=== PATIENT | female | born 1990 | race Caucasian/White ===

== ENCOUNTER 2017-02-04 13:32 | Emergency (ER) | payer OTHER ==
[~2017-02-04] VITALS: Ht 160 cm; Wt 46.8 kg
[2017-02-04 13:34] VITALS: BP 104/75; PULSE 95; RESP 16; TEMP 97.9; O2SAT 99
[2017-02-04] MEDS ORDERED: BIRTH CONTROL PILLS PO (13:54)
[2017-02-04] MEDS ORDERED: ACETAMINOPHEN 1000 MG/100 ML VIAL IV ONE (14:30)
[2017-02-04] MEDS ORDERED: SODIUM CHLOR 0.9% 1000 ML INJ 1,000 ML IV SCH (14:30)
[2017-02-04] MEDS ORDERED: ONDANSETRON HCL 4 MG/2 ML VIAL IV PUSH ONE (14:30)
[2017-02-04 14:39] LABS: BLOOD, URINE NEG (NEG); GLUCOSE,URINE NEG (NEG); NITRITE,URINE NEG (NEG)
[2017-02-04 14:42] LABS: KETONE, URINE 80 OR GREATER mg/dL (NEG)
[2017-02-04 14:43] LABS: METHOD OF COLLECTION VOIDED; URINE COLOR YELLOW (YELLW/STRAW)
[2017-02-04 14:47] LABS: WBC, URINE 0-2 /hpf (0-5)
[2017-02-04 14:55] VITALS: BP 106/74; PULSE 96; RESP 18; O2SAT 98
--- NOTE | 2017-02-04 14:59 | PD ---
HPI Chief Complaint: Abdominal Pain Time Seen by Provider: 14:17 Travel History International Travel<30 days: No Contact w/Intl Traveler<30days: No Traveled to known affect area: No History of Present Illness HPI 27 year-old woman presents to the emergency department complaining of severe mid upper abdominal pain associated with nausea but no vomiting, and going for the past day. She had a 9 months ago. She's not had any other abdominal surgeries. She still breast-feeding. She's never had gallbladder trouble. Doesn't have trouble with indigestion or reflux. She has not had any urinary symptoms. She had one episode of loose stools this morning. She's had chills as well. No sick contacts. She ate [place] in 2 nights ago, multiple family members ate the same and none of them are sick. It was well cooked. She otherwise has been feeling generally well and healthy prior to this. History Past Medical History Medical History: Denies Significant Hx Tetanus Vaccination: Unknown Influenza Vaccination: No LMP: 2014 ( & BCP) : 1 Para: 1 Social History Alcohol Use: No Tobacco Use: No Allergies-Medications (Allergen,Severity, Reaction): Coded Allergies: Ceclor (Verified Allergy, Unknown, 02/04/17) Codeine (Verified Allergy, Unknown, 02/04/17) Reported Meds & Prescriptions Reported Meds & Active Scripts Active Reported [ Control Pills] 1 Tab PO DAILY Review of Systems Except as stated in HPI: all other systems reviewed are Neg Physical Exam Narrative GENERAL: 19 year-old woman, appears uncomfortable but nontoxic. SKIN: Warm and dry. HEAD: Atraumatic. Normocephalic. EYES: Pupils equal and round. No scleral icterus. No injection or drainage. ENT: No nasal bleeding or discharge. Mucous membranes pink and moist. NECK: Trachea midline. No JVD. CARDIOVASCULAR: Regular rate and rhythm. No murmur appreciated. RESPIRATORY: No accessory muscle use. Clear to auscultation. Breath sounds equal bilaterally. GASTROINTESTINAL: Abdomen is flat and soft. She is mild to moderate epigastric tenderness. Negative Jurado's. No rebound or guarding. MUSCULOSKELETAL: No obvious deformities. No edema. NEUROLOGICAL: Awake and alert. No obvious cranial nerve deficits. Motor grossly within normal limits. Normal speech. PSYCHIATRIC: Appropriate mood and affect; insight and judgment normal. Data Data Last Documented VS Vital Signs Date Time Temp Pulse Resp B/P Pulse Ox O2 Delivery O2 Flow Rate FiO2 02/04/17 15:14 16 02/04/17 14:55 96 106/74 98 Room Air 02/04/17 13:34 97.9 Orders Complete Blood Count With Diff (02/04/17 14:17) Comprehensive Metabolic Panel (02/04/17 14:17) Iv Access Insert/Monitor (02/04/17 14:17) Lipase (02/04/17 14:17) Ua Includes Microscopic (02/04/17 14:17) Us Abdomen Gallbladder (02/04/17 ) Sodium Chlor 0.9% 1000 Ml Inj (Ns 1000 M (02/04/17 14:30) Acetaminophen Inj (Ofirmev Inj) (02/04/17 14:30) Ondansetron Inj (Zofran Inj) (02/04/17 14:30) Ed Urine Pregnancytest Poc (02/04/17 15:31) Labs Laboratory Tests Test 02/04/17 02/04/17 14:25 14:40 Urine Collection Type VOIDED Urine Color YELLOW Urine Turbidity CLEAR Urine pH 6.0 Urine Specific [place] 1.025 Urine Protein NEG mg/dL Urine Glucose (UA) NEG mg/dL Urine Ketones 80 OR GREATER mg/dL Urine Occult Blood NEG Urine Nitrite NEG Urine Bilirubin NEG Urine Leukocyte Esterase NEG Urine WBC 0-2 /hpf Urine Collection Time 1425 White Blood Count 9.0 TH/MM3 Red Blood Count 4.95 MIL/MM3 Hemoglobin 15.6 GM/DL Hematocrit 46.1 % Mean Corpuscular Volume 93.0 FL Mean Corpuscular Hemoglobin 31.6 PG Mean Corpuscular Hemoglobin 33.9 % Concent Red Cell Distribution Width 11.8 % Platelet Count 323 TH/MM3 Mean Platelet Volume 7.2 FL Neutrophils (%) (Auto) 88.3 % Lymphocytes (%) (Auto) 6.2 % Monocytes (%) (Auto) 4.9 % Eosinophils (%) (Auto) 0.1 % Basophils (%) (Auto) 0.5 % Neutrophils # (Auto) 8.0 TH/MM3 Lymphocytes # (Auto) 0.6 TH/MM3 Monocytes # (Auto) 0.4 TH/MM3 Eosinophils # (Auto) 0.0 TH/MM3 Basophils # (Auto) 0.0 TH/MM3 CBC Comment DIFF FINAL Differential Comment Sodium Level 140 MEQ/L Potassium Level 3.9 MEQ/L Chloride Level 104 MEQ/L Carbon Dioxide Level 25.7 MEQ/L Anion Gap 10 MEQ/L Blood Urea Nitrogen 13 MG/DL Creatinine 0.67 MG/DL Estimat Glomerular Filtration 105 ML/MIN Rate Random Glucose 93 MG/DL Calcium Level 9.6 MG/DL Total Bilirubin 0.9 MG/DL Aspartate Amino Transf 11 U/L (AST/SGOT) Alanine Aminotransferase 22 U/L (ALT/SGPT) Alkaline Phosphatase 55 U/L Total Protein 7.9 GM/DL Albumin 4.1 GM/DL Lipase 197 U/L [facility] Medical Decision Making Medical Screen Exam Complete: Yes Emergency Medical Condition: Yes Interpretation(s) LABS: CBC remarkable for hemoglobin 15.6 CMP is unremarkable Lipase is normal UA unremarkable, ketones Differential Diagnosis Pancreatitis, cholecystitis, gastritis, UTI, other Narrative Course Medical decision making INITIAL: This is a well 27 year-old woman who presents to the emergency department with upper abdominal pain. IS unclear. She's had nausea but no vomiting with it. She had one episode of loose stools. She appears uncomfortable but doesn't have a lot of tenderness. Gallbladder disease, gastritis, pancreatitis seems possible. We'll check labs, ultrasound, reassess. FINAL: Labs show some evidence of dehydration with hemoconcentration and ketones in the urine. She is given IV fluids. Ultrasound shows a trace amount of free fluid that could be normal, reproductive age woman. She looks well. Repeat exam shows a benign abdomen, minimal tenderness. Labs are otherwise reassuring. At this point recommended treatment for gastritis. Patient had trouble with indigestion reflex when she was . She had more indigestion this morning as well. Ranitidine is follow-up to be safe with . Recommend outpatient follow-up. Diagnosis Primary Impression: Abdominal pain Additional Impression: Gastritis Patient Instructions: General Instructions Additional Instructions: Take ranitidine as prescribed. Drink plenty of fluids stay well-hydrated. Return to the emergency department for any worsening abdominal pain, vomiting, or any other new or worsening symptoms. Med/Other Pt SpecificInfo: Prescription(s) given Scripts Ranitidine 150 Mg Stt529 Mg PO BID #60 CAP Prov:Pérez Mcconnell MD 02/04/17 Ondansetron Odt (Zofran Odt)4 Mg Tab4 Mg SL Q8HR PRN (Nausea/Vomiting) #15 TAB May substitute non-ODT form. Prov:Pérez Mcconnell MD 02/04/17 Disposition: 01 DISCHARGE HOME Condition: Stable Pérez Mcconnell MD Feb 04, 2017 14:59
[2017-02-04 15:00] LABS: BASOPHIL % 0.5 % (0.0-2.0); EOSINOPHIL % 0.1 % (0.0-4.0); HEMATOCRIT 46.1 % (35.0-46.0); HEMO FLAGS DIFF FINAL; LYMPH % 6.2 % (9.0-44.0); LYMPHOCYTE # 0.6 TH/MM3 (1.0-4.8); MEAN CORPUSCULAR HEMOGLOBIN 31.6 PG (27.0-34.0); MEAN CORPUSCULAR HGB CONC 33.9 % (32.0-36.0); MONO % 4.9 % (0.0-8.0); NEUT % 88.3 % (16.0-70.0); PLATELET COUNT 323 TH/MM3 (150-450); RED BLOOD COUNT 4.95 MIL/MM3 (4.00-5.30); RED CELL DISTRIBUTION WIDTH 11.8 % (11.6-17.2)
[2017-02-04 15:25] LABS: CHLORIDE 104 MEQ/L (98-107); POTASSIUM 3.9 MEQ/L (3.5-5.1); SODIUM (NA) 140 MEQ/L (136-145)
[2017-02-04 15:29] LABS: ANION GAP 10 MEQ/L (5-15); BICARBONATE 25.7 MEQ/L (21.0-32.0); BLOOD UREA NITROGEN 13 MG/DL (7-18)
[2017-02-04 15:32] LABS: ALT (GPT) 22 U/L (10-53); AST (GOT) 11 U/L (15-37); GLOMERULAR FILTRATION RATE 105 ML/MIN (>89)
[2017-02-04 15:33] LABS: TOTAL BILIRUBIN ADULT 0.9 MG/DL (0.2-1.0)
[2017-02-04 15:35] LABS: ALKALINE PHOSPHATASE 55 U/L (45-117)
--- NOTE | 2017-02-04 15:35 | RADHPO ---
EXAM DATE/TIME: 02/04/2017 15:05 [facility] COMPARISON: No previous studies available for comparison. INDICATIONS : Right upper quadrant pain. MEDICAL HISTORY : Right upper quadrant pain. History of . SURGICAL HISTORY : section. ENCOUNTER: Initial ACUITY: 1 day PAIN SCORE: 6/10 LOCATION: Right upper quadrant MEASUREMENTS: LIVER: 16.9 cm length COMMON DUCT: 2 mm RIGHT KIDNEY: 10.1 x 5.3 x 4.0 cm FINDINGS: LIVER: Normal echotexture without focal lesion or ductal dilatation. COMMON DUCT: No intraluminal mass or stone visualized. GALLBLADDER: Contains no stones, demonstrates no wall thickening or pericholecystic fluid. PANCREAS: The visualized portions are within normal limits. RIGHT KIDNEY: No evidence of hydronephrosis, stone, or mass. CONCLUSION: Trace of free fluid is present in the abdomen around the tip of the liver and gallbladder. There are no gallstones or sludge identified. This could be from the pelvic source in this 19 year-old.. Segundo Soto MD FACR on February 04, 2017 at 15:30 Board Certified Radiologist. This report was verified electronically.
[2017-02-04 15:55] VITALS: BP 114/64; PULSE 80; RESP 16; O2SAT 100
[2017-02-04] MEDS ORDERED: ZOFR4TAB3 SL (15:57)
[2017-02-04] MEDS ORDERED: RANI150C PO (15:57)
[2017-02-04] MEDS ORDERED: FAMOTIDINE 20 MG TAB PO ONE (16:00)
== END 2017-02-04 16:29 | disposition home or self-care (01) ==
LOC: PHED 13:32
DX: K29.70 Gastritis, unspecified, without bleeding (principal)
CPT/HCPCS: 76705; 80053; 81001; 83690; 84703; 85025; 96361; 96374; 96375; 99284; J0131; J2405; J7030